=== PATIENT | female | born 1955 | race Caucasian/White ===

== ENCOUNTER 2017-07-04 20:00 | Emergency (ER) | payer OTHER ==
[2017-07-04 20:09] VITALS: RESP 16; TEMP 99.3
[2017-07-04] MEDS ORDERED: SULFAMETHOX/TMP 800/160 MG 1 TAB PO ONE (20:40)
[2017-07-04] MEDS ORDERED: CEPHALEXIN 500 MG CAP PO ONE (20:40)
--- NOTE | 2017-07-04 20:42 | EDPHY ---
H & P Time Seen by Provider: 07/04/17 20:33 HPI/ROS: CHIEF COMPLAINT: Right arm redness HISTORY OF PRESENT ILLNESS: Patient had a benign skin cyst removed 6 days ago at her waiver analyst's office Dr. Elias. It was bruising around the area but then today became red warm tender and hot to the touch. She was started on doxycycline and took 1 orally and the borders are marked but she presents here because the redness has extended 0.5 cm past the park on 2 sides. REVIEW OF SYSTEMS: Patient can still move her arm and range her elbow. She does not have fever or chills. No red streaks going up her arm. Past medical history: Benign fatty tumor removal, no diabetes Physical exam: There is a 8 x 7 cm area of erythema surrounding the suture site on her right AC. She has full range of motion of her elbow. There is no lymphangitis and no axillary lymph nodes. Normal motor sensory and radial pulse in the right hand. No fluctuance palpated. No blisters no crepitus and no eschar. Compartments are soft. Area of redness and tenderness is localized to the area around her suture line. Clinical impression: Patient appears to have localized right arm cellulitis in the area of an incision from a minor surgical procedure at her waiver analyst 1 week ago. Plan to start on Bactrim and Keflex, discontinue doxycycline. We will broaden her coverage. 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 Will follow up the patient tomorrow. I think it is unlikely that she has abscess or compartment syndrome or DVT. Tetanus update discussed and consented. Smoking Status: Never smoked Constitutional: Initial Vital Signs Temperature (C) 37.4 C 07/04/17 20:02 Heart Rate 87 07/04/17 20:02 Respiratory Rate 16 07/04/17 20:02 Blood Pressure 122/59 H 07/04/17 20:02 O2 Sat (%) 96 07/04/17 20:02 O2 Delivery Mode Room Air Allergies/Adverse Reactions: No Known Allergies Allergy (Unverified 07/04/17 20:02) Home Medications: Medication Instructions Recorded Cephalexin [Keflex] 500 mg PO QID #40 cap 07/04/17 Doxycycline Hyclate 07/04/17 Sulfamethox/Tmp 800/160 mg 1 tab PO BID@1000,2200 #20 tab 07/04/17 [Bactrim Ds] MDM/Departure - MDM Medications Given: Discontinued Medications Cephalexin HCl (Keflex) 500 mg PO EDNOW ONE PRN Reason: Protocol Stop: 07/04/17 20:41 Last Admin: 07/04/17 21:06 Dose: 500 mg Diphtheria/Tetanus/Acell Pertussis (Boostrix) 0.5 ml IM .ONCE ONE Stop: 07/04/17 20:53 Last Admin: 07/04/17 21:06 Dose: 0.5 ml Trimethoprim/Sulfamethoxazole (Bactrim Ds) 1 ea PO EDNOW ONE PRN Reason: Protocol Stop: 07/04/17 20:41 Last Admin: 07/04/17 21:06 Dose: 1 ea - Depart Disposition: Home, Routine, Self-Care Clinical Impression: Right arm cellulitis Condition: Good Instructions: Cellulitis (ED) Additional Instructions: Please stop doxycycline and start the Keflex and Bactrim. Please follow-up with the waiver analyst tomorrow. Return for worsening redness, pain, or fever, or red streaks going up the arm toward armpit or shoulder Prescriptions: Cephalexin [Keflex] 500 mg PO QID #40 cap Sulfamethox/Tmp 800/160 mg [Bactrim Ds] 1 tab PO BID@1000,2200 #20 tab Referrals: Danielle Elias MD [Medical Doctor] - As per Instructions
[2017-07-04] MEDS ORDERED: TDAP ADULT 0.5 ML INJ (BOOSTRIX) IM ONE (20:52)
[2017-07-04 21:38] VITALS: BP 118/65; PULSE 79; O2SAT 98
== END 2017-07-04 21:36 | disposition home or self-care (01) ==
PROC: 3E0234Z Introduction of Serum, Toxoid and Vaccine into Muscle, Percutaneous Approach (ICD-10-PCS; principal; 2017-07-04)
DX: L03.113 Cellulitis of right upper limb (principal); Z23 Encounter for immunization